=== PATIENT | female | born 1960 | race Caucasian/White ===

== ENCOUNTER 2024-11-12 06:25 | Day surgery (SDC) | payer OTHER, SELFPAY | END 2024-11-12 16:12 | disposition home or self-care (01) | LOC: GI 06:25 | PROVIDERS: ATTENDING PHYSICIAN Internal Medicine | DX: Z12.11 Encounter for screening for malignant neoplasm of colon (principal); K64.8 Other hemorrhoids; K55.20 Angiodysplasia of colon without hemorrhage; K58.9 Irritable bowel syndrome, unspecified | CPT/HCPCS: 45380; 88305 ==